=== PATIENT | male | born 1975 | race Caucasian/White ===

== ENCOUNTER 2016-07-31 23:37 | Emergency (ER) | payer OTHER ==
[~2016-07-31] VITALS: Ht 190.5 cm; Wt 88.5 kg
[2016-07-31 23:58] VITALS: BP 134/82
--- NOTE | 2016-08-01 00:08 | ED GI/GU/ABDOMINAL COMPLAINT ---
History of Present Illness General Chief Complaint: General Adult Stated Complaint: GIRLFRIEND +STD PT WANTS TO BE TESTED Source: patient, friend Exam Limitations: no limitations Vital Signs & Intake/Output Vital Signs & Intake/Output Vital Signs Date Time Temp Pulse Resp B/P Pulse O2 O2 Flow FiO2 Ox Delivery Rate 07/31 2358 98.0 93 18 134/82 96 Room Air ED Intake and Output 08/01 0000 07/31 1200 Intake Total Output Total Balance Patient 195 lb Weight Allergies Coded Allergies: No Known Allergies (07/31/16) Reconcile Medications No Known Home Medications Triage Note: TRIAGE: PATIENT TO ER FROM HOME REPORTS GIRLFRIEND TESTED POSITIVE FOR STD TODAY AND WAS PLACED ON ABX. PATIENT DENIES ANY PAIN, DENIES ANY URINARY DIFFICULTIES. DENIES ANY COMPLAINTS. REPORTS "DON'T WANT ANY NEEDLES, JUST A SCRIPT FOR ABX." Triage Nurses Notes Reviewed? yes HPI: Approximately 3 days ago patient noticed that he had a little penile discharge and dysuria. There are no effusions chills. Patient recently started a new relationship with a girl and has had unprotected sex. He mentioned this to his girlfriend so she went to her [place] to get checked out. She tested positive for chlamydia. Patient now presents to the emergency room requesting antibiotics for chlamydia. Patient currently complaints. Past History Travel History Traveled to [place] past 21 day No Medical History Any Pertinent Medical History? none Neurological: NONE EENT: NONE Cardiovascular: NONE Respiratory: NONE Gastrointestinal: NONE Hepatic: NONE Renal: NONE Musculoskeletal: NONE Psychiatric: NONE Endocrine: NONE Blood Disorders: NONE Cancer(s): NONE NURSE MIDWIFE/Reproductive: NONE Surgical History Surgical History: non-contributory Psychosocial History What is your primary language German Tobacco Use: Never used ETOH Use: occasional use Illicit Drug Use: denies illicit drug use Family History Hx Contributory? No Review of Systems Review of Systems Constitutional: Reports: no symptoms. Respiratory: Reports: no symptoms. Cardiovascular: Reports: no symptoms. GI: Reports: no symptoms. Genitourinary: Reports: see HPI, discharge, dysuria. Musculoskeletal: Reports: no symptoms. Skin: Reports: no symptoms. Neurological/Psychological: Reports: no symptoms. Hematologic/Endocrine: Reports: no symptoms. Immunologic/Allergic: Reports: no symptoms. Physical Exam Physical Exam General Appearance: well developed/nourished, alert, awake, anxious, mild distress Eyes: Bilateral: PERRL, EOMI. Neck: normal inspection, supple, full range of motion Respiratory: normal breath sounds, chest non-tender, no respiratory distress, lungs clear Cardiovascular: regular rate/rhythm, normal peripheral pulses Gastrointestinal: normal bowel sounds, soft, non-tender, no organomegaly Back: normal inspection, normal range of motion Extremities: normal range of motion Neurologic/Psych: no motor/sensory deficits, awake, alert, oriented x 3, normal gait, normal mood/affect Skin: intact, normal color, warm/dry Core Measures ACS in differential dx? No Severe Sepsis Present: No Septic Shock Present: No Progress Differential Diagnosis: urethritis, UTI/pyelo Plan of Care: Orders Procedure Date/time Status CHLAMYDIA-GC DNA PROBE 08/01 2355 Active Current Medications Sig/Genaro Start time Last Medication Dose Stop Time Status Admin Azithromycin 1,000 MG ONCE ONE 08/01 14 UNVr (Zithromax) 08/01 001 Microbiology 08/01 2355 URINE ROUT: GC DNA Probe - ORD 08/01 2355 URINE ROUT: Chlamydia DNA Probe ([facility]HA) - ORD Initial ED EKG: none Departure Departure Disposition: HOME OR SELF CARE Condition: Stable Clinical Impression Primary Impression: Chlamydia Referrals: PATIENT HAS NO PRIMARY CARE DR (PCP/Family) Additional Instructions: RETURN FOR ANY CONCERNS Departure Forms: Customer Survey General Discharge Information Prescriptions: Current Visit Scripts No Known Home Medications
== END 2016-08-01 00:31 ==
LOC: ERH 23:37
DX: A74.9 Chlamydial infection, unspecified (principal)
CPT/HCPCS: 87491; 87591